=== PATIENT | male | born 1980 | race Caucasian/White ===

== ENCOUNTER 2020-02-06 16:42 | Outpatient (REF) | payer OTHER, SELFPAY | END 2020-02-06 16:43 | disposition home or self-care (01) | LOC: HO.LAB 16:42 | PROVIDERS: Visit Provider Internal Medicine | DX: Z20.828 Contact with and (suspected) exposure to other viral communicable diseases (principal) | CPT/HCPCS: C9803; U0003 ==

== ENCOUNTER 2020-02-16 15:42 | Outpatient (REF) | payer OTHER, SELFPAY | END 2020-02-16 15:43 | disposition home or self-care (01) | LOC: HO.LAB 15:42 | PROVIDERS: Visit Provider Internal Medicine | DX: Z20.828 Contact with and (suspected) exposure to other viral communicable diseases (principal) | CPT/HCPCS: C9803; U0003 ==

== ENCOUNTER 2020-03-06 16:43 | Outpatient (REF) | payer MEDICAID, SELFPAY | END 2020-03-06 16:44 | disposition home or self-care (01) | LOC: HO.LAB 16:43 | PROVIDERS: Visit Provider Internal Medicine | DX: Z20.828 Contact with and (suspected) exposure to other viral communicable diseases (principal) | CPT/HCPCS: C9803; U0003 ==

== ENCOUNTER 2020-03-20 14:52 | Outpatient (REF) | payer MEDICAID, SELFPAY | END 2020-03-20 14:53 | disposition home or self-care (01) | LOC: HO.LAB 14:52 | PROVIDERS: Visit Provider Internal Medicine | DX: Z20.828 Contact with and (suspected) exposure to other viral communicable diseases (principal) | CPT/HCPCS: C9803; U0003 ==

== ENCOUNTER 2020-04-01 14:15 | Outpatient (REF) | payer MEDICAID, SELFPAY | END 2020-04-01 14:16 | disposition home or self-care (01) | LOC: HO.LAB 14:15 | PROVIDERS: Visit Provider Internal Medicine | DX: Z20.822 Contact with and (suspected) exposure to COVID-19 (principal) | CPT/HCPCS: 36415; C9803; U0003 ==

== ENCOUNTER 2020-04-26 08:49 | Outpatient (REF) | payer OTHER, SELFPAY ==
[2020-04-26 09:35] LABS: Hematocrit 44.6 % (42-52); Hemoglobin 14.4 g/dl (14.0-18.0); Mean Corpuscular HGB Conc 32.3 g/dl (31.0-36.0); Mean Corpuscular Volume 89.7 fL (80-98); Mean Platelet Volume 9.1 fL (9.4-12.4); Platelet Count 272 X10*3/uL (160-400); Red Blood Count 4.97 X10*6/uL (4.60-5.80); Red Cell Distribution Width 13.8 % (11.0-16.0); White Blood Count 4.6 X10*3/uL (4.8-10.8)
[2020-04-26 10:00] LABS: Alanine Aminotransferase 20 U/L (0-40); Alkaline Phosphatase 58 U/L (39-117); Anion Gap 11 (12-20); Aspartate Amino Transferase 18 U/L (5-37); Bilirubin Direct < 0.2 mg/dL (0.0-0.5); Bilirubin Total 0.3 mg/dL (0.0-1.0); Blood Urea Nitrogen 13 mg/dL (9-16); Calcium 8.2 mg/dL (8.4-10.2); Carbon Dioxide 31 mmol/L (22-29); Chloride 104 mmol/L (96-108); Cholesterol 230 mg/dL; Estimated Glomerular Filt Rate > 60; Glucose Fasting 97 mg/dL (60-99); HDL Cholesterol 49 mg/dL; LDL Cholesterol Calculated 139 mg/dl; Potassium 4.5 mmol/L (3.3-5.1); Sodium 141 mmol/L (135-145); Total Protein 6.5 g/dL (6.5-8.0); Triglycerides 211 mg/dL
[2020-04-26 10:22] LABS: TSH reflex Free T4 2.62 uIU/mL (0.32-4.0)
== END 2020-04-26 08:50 | disposition home or self-care (01) ==
LOC: HO.LAB 08:49
PROVIDERS: PCP Hospitalist; Visit Provider Hospitalist
DX: Z00.00 Encounter for general adult medical examination without abnormal findings (principal); Z13.220 Encounter for screening for lipoid disorders; Z13.29 Encounter for screening for other suspected endocrine disorder
CPT/HCPCS: 36415; 80048; 80061; 80076; 84443; 85027

== ENCOUNTER 2020-05-14 07:13 | Outpatient (REF) | payer OTHER, SELFPAY ==
--- NOTE | ~2020-05-14 | XR_ITS ---
EXAMINATION: XR LUMBOSACRAL SPINE CLINICAL INFORMATION: Age-related osteoporosis. COMPARISON: None TECHNIQUE: Three views of the lumbosacral spine. FINDINGS: Normal alignment without subluxation. There is mild anterior wedging of L1 and T12 vertebral bodies, of indeterminate age. Inferior endplate findings in the L1 and T12 vertebral bodies suggests Schmorl's nodes. Remainder of the vertebral body heights are maintained. No acute fractures are seen. Disc spaces are maintained. Schmorl's node at T11 vertebral body as well. SI joints are intact. No suspicious soft tissue calcification. There is endplate spurring at L4, L5. XR/XR lumbar spine 2-3V IMPRESSION: 1. Mild anterior wedging of the T12 and L1 vertebral bodies, of indeterminate age. Please clinically correlate. Further evaluation with cross-sectional imaging/MRI as clinically warranted. 2. Mild spondylosis in the lumbar spine as detailed above.
[2020-05-14 07:36] LABS: MANUAL DIFF FLAG NO
[2020-05-14 07:42] LABS: Basophils Absolute Auto 0.1 X10*3/uL (0.0-0.2); Eosinophils Absolute Auto 0.4 X10*3/uL (0.0-0.4); Eosinophils Percent Auto 6.2 % (0-4); Hemoglobin 15.5 g/dl (14.0-18.0); Imm Gran Abs Auto 0.02 X10*3/uL (0.00-0.03); Imm Gran Pct Auto 0.3 % (0.0-0.4); Lymphocytes Absolute Auto 2.1 X10*3/uL (1.2-4.9); Lymphocytes Percent Auto 36.9 % (20-40); Mean Corpuscular Hemoglobin 29.3 pg (27.0-33.0); Mean Corpuscular Volume 88.8 fL (80-98); Mean Platelet Volume 8.8 fL (9.4-12.4); Monocytes Absolute Auto 0.6 X10*3/uL (0.1-1.2); Monocytes Percent Auto 9.9 % (2-11); Neutrophils Absolute Auto 2.6 X10*3/uL (2.0-8.3); Neutrophils Percent Auto 45.7 % (45-73); Platelet Count 308 X10*3/uL (160-400); Red Blood Count 5.29 X10*6/uL (4.60-5.80); Red Cell Distribution Width 13.7 % (11.0-16.0); White Blood Count 5.8 X10*3/uL (4.8-10.8)
[2020-05-14 09:22] LABS: Alanine Aminotransferase 25 U/L (0-40); Albumin Level 4.2 g/dL (3.5-5.0); Alkaline Phosphatase 59 U/L (39-117); Anion Gap 15 (12-20); Aspartate Amino Transferase 20 U/L (5-37); Bilirubin Total 0.3 mg/dL (0.0-1.0); Blood Urea Nitrogen 6 mg/dL (9-16); Calcium 8.7 mg/dL (8.4-10.2); Carbon Dioxide 26 mmol/L (22-29); Chloride 105 mmol/L (96-108); Cholesterol 242 mg/dL; Estimated Glomerular Filt Rate > 60; Glucose Fasting 99 mg/dL (60-99); HDL Cholesterol 54 mg/dL; LDL Cholesterol Calculated 135 mg/dl; Potassium 4.7 mmol/L (3.3-5.1); Sodium 141 mmol/L (135-145); Triglycerides 266 mg/dL
[2020-05-14 09:45] LABS: TSH reflex Free T4 5.21 uIU/mL (0.32-4.0)
[2020-05-14 10:21] LABS: Free T4 (Free Thyroxine) 0.81 ng/dL (0.71-1.85)
== END 2020-05-14 07:14 | disposition home or self-care (01) ==
LOC: HO.LAB 07:13
PROVIDERS: PCP Family Medicine; Visit Provider Family Medicine
DX: Z00.00 Encounter for general adult medical examination without abnormal findings (principal); M81.0 Age-related osteoporosis without current pathological fracture
CPT/HCPCS: 36415; 72100; 80053; 80061; 84439; 84443; 85025

== ENCOUNTER 2020-05-17 12:29 | Outpatient (REF) | payer OTHER, SELFPAY ==
[2020-05-17 15:25] LABS: Free T4 (Free Thyroxine) 0.83 ng/dL (0.71-1.85); Thyroid Stimulating Hormone 3.14 uIU/mL (0.32-4.0)
[2020-05-18 21:11] LABS: Triiodothyronine T3 Total 136 ng/dL (76-181)
== END 2020-05-17 12:30 | disposition home or self-care (01) ==
LOC: HO.WFDLDS 12:29
PROVIDERS: Visit Provider Family Medicine
DX: R79.89 Other specified abnormal findings of blood chemistry (principal)
CPT/HCPCS: 36415; 84439; 84443; 84480

== ENCOUNTER 2020-05-21 12:43 | Outpatient (REF) | payer OTHER, SELFPAY ==
--- NOTE | ~2020-05-21 | XR_ITS ---
EXAMINATION: XR HIP, LEFT CLINICAL INFORMATION: Pain left hip COMPARISON: None TECHNIQUE: AP and frog-lateral views of the left hip. FINDINGS: There is no fracture, dislocation, or destructive process. Bony mineralization appears normal. There is borderline narrowing superior medial hip joint without erosive change or visible chondrocalcinosis. The AP view shows borderline convexity at the lateral femoral head neck junction which may be associated with femoral acetabular impingement. There is a benign oval ossicle at the superior lateral acetabular rim. Pubis in soft tissue planes are normal. XR/XR hip LT min 2V IMPRESSION: Borderline narrowing superior medial hip joint.
--- NOTE | ~2020-05-21 | MM_ITS ---
EXAMINATION: BONE DENSITOMETRY CLINICAL INDICATION: Osteoporosis. Male, age 39. COMPARISON: None (current study represents initial baseline exam). TECHNIQUE: Using a [employer] DXA System (software version: 13.1) manufactured by [employer], dual-energy x-ray absorptiometry was performed of the lumbar spine and left hip. The images are of good technical quality. Based on ISCD (International Society for Clinical Densitometry) standards of reporting, Z-scores instead of T-scores are reported in this male patient younger than age 50. Summary results are attached. FINDINGS: AP SPINE L1-L4: BMD 0.970 g/cm2, T-score -2.1, Z-score -2.1, Z-score below expected range for age. LEFT FEMUR, NECK: BMD 0.857 g/cm2, T-score -1.6, Z-score -1.3, Z-score within expected range for age. LEFT FEMUR, TOTAL: BMD 0.927 g/cm2, T-score -1.2, Z-score -1.0, Z-score within expected range for age. IDENTIFIED RISK FACTORS: Osteoporosis, anticonvulsant. HISTORY OF FRACTURE: None listed. MEDICATIONS: None listed. MM/XR DEXA axial skeleton IMPRESSION: 1. DIAGNOSIS: Based on the lowest Z-score value of -2.1 in the lumbar spine, the patient's bone density is below the expected range for age. 2. 10-YEAR FRACTURE RISK PREDICTION, FRAX: Major osteoporotic fracture risk 1.2% and hip fracture risk 0.2%. 3. Treatment Recommendations: NOF guidelines recommend consideration for treatment in postmenopausal women and men age 50 and older presenting with the following: -A hip or vertebral (clinical or morphometric) fracture. -T-score less than or equal to -2.5 at the femoral neck or spine after appropriate evaluation to exclude secondary causes. -Low bone mass at the hip or spine and a 10-year fracture probability by FRAX of greater than or equal to 3% for hip fracture or greater than or equal to 20% for major osteoporotic fracture based on the [place] adapted WHO algorithm. 4. Other Recommendations: All treatment decisions require clinical judgment and consideration of individual patient factors, including patient preferences, comorbidities, previous drug use, risk factors not captured in the FRAX model (e.g. frailty, falls, vitamin D deficiency, increased bone turnover, interval significant decline in bone density) and possible under or overestimation of fracture risk by FRAX. Additional medical evaluation for secondary cause of low bone mineral density may be appropriate. FUTURE SCAN RECOMMENDATION: People with diagnosed cases of osteoporosis or at high risk for fracture should have regular bone mineral density tests. For patients eligible for Medicare, routine testing is allowed once every 2 years. The testing frequency can be increased to one year for patients who have rapidly progressing disease, those who are receiving or discontinuing medical therapy to restore bone mass, or have additional risk factors.
== END 2020-05-21 12:44 | disposition home or self-care (01) ==
LOC: HO.MAMMO 12:43
PROVIDERS: PCP Family Medicine; Visit Provider Family Medicine
DX: Z13.820 Encounter for screening for osteoporosis (principal); M25.552 Pain in left hip; M54.5 Low back pain; K62.5 Hemorrhage of anus and rectum; K59.00 Constipation, unspecified
CPT/HCPCS: 73502; 77080

== ENCOUNTER 2020-05-24 06:15 | Day surgery (SDC) | payer OTHER, SELFPAY ==
[2020-05-24 06:30] VITALS: BP 124/88; PULSE 85; RESP 16; TEMP 37.2; O2SAT 97; BMI 30.4
--- NOTE | 2020-05-24 07:15 | HO.ANESPROP2 ---
[facility] Active Problems Active Problems: All Active Problems (Updated 05/24/20 @ 06:46 by Sunita Smith RN) Rectal bleeding (Acute) Low back pain (Acute) Chronic pain (Acute) Sleep apnea (Acute) Anxiety and depression (Acute) Osteoporosis (Acute) Left hip pain (Acute) Elevated TSH (Acute) Cerumen impaction (Acute) Insomnia (Acute) Anxiety (Acute) Fibromyalgia (Acute) Gastritis (Acute) Colon cancer screening (Acute) Bleeding hemorrhoid (Acute) Constipation (Acute) Past Medical History Medical History Adult general medical exam Anxiety Asthma GERD (gastroesophageal reflux disease) History of fractured vertebra Laboratory examination ordered as part of a routine general medical examination Well adult exam Family History Family History Family/Other No problems noted. Surgical History Surgical History No history of previous surgery Social History Social History Alcohol intake: current Alcohol intake frequency: holidays/special occasions only Smoking Status: Never smoker Use of substances other than those prescribed or required for medical reasons: No Advance Directives: No Advance Directives Information Provided: Yes Meds Allergies Allergy/AdvReac Type Severity Reaction Status Date / Time moxifloxacin [From Avelox] Allergy Intermediate Rash< Verified 05/24/20 06:24 Hives. Home Medications Medication Instructions Recorded Confirmed Last Taken Type albuterol 90 mcg/actuation aerosol mcg INHALATION 04/23/20 Unknown History inhaler clonazepam 2 mg tablet 2 mg PO BID 04/23/20 Unknown History Exam Exam Date and Time: May 24, 2020 0715 Height,Weight and Vital Signs: Height 5 ft 3 in Weight 78.018 kg Last Vital Signs Temp 99.0 F 05/24/20 06:30 Pulse 85 05/24/20 06:30 Resp 16 05/24/20 06:30 BP 124/88 05/24/20 06:30 Pulse Ox 97 05/24/20 06:30 Airway Mallampati Class: I TM Dist: >3cm Loose/Missing/Broken Teeth: No Heart: RRR Lungs: CTA Assessment and Plan Assessment Anesthesia Assessment: Anesthesia Plan Discussed and Chart Reviewed Final Anesthetic Review NPO: Yes ASA Class: II Final Preanesthetic Review: Meds/Allgs Chart Reviewed, Consent Obtained/Reviewed and Anes Risks/Benef Reviewed Patient Risk: Low Procedure Risk: Low Anesthetic Plan Anesthetic Plan: MAC: Disposition: Standard PACU
--- NOTE | 2020-05-24 07:20 | W.PM.OPN ---
Operative Note Operative Note Date of Service: 05/24/20 Narrative: Pre-op diagnosis: Colon cancer screening, Rectal bleeding Post-op diagnosis: other (Diverticulosis, hemorrhoids) Procedure: COLONOSCOPY TILL CECUM Consent: Indications for the procedure and potential complications of bleeding, perforation, reaction to medications and missed diagnosis were discussed with the patient and informed consent was obtained. Instrument: Olympus PCF H 190 L variable stiffness pediatric colonoscope Monitoring: Vital signs and clinical assessment, intermittent blood pressure monitoring, continuous EKG monitoring, Pulse oximetry and Carbon Dioxide monitoring were done throughout the procedure. Colon withdrawl time was 16 minutes. Procedure: The patient was placed in the left lateral decubitis position and pre-procedure medications were administered. After a digital rectal examination of the ano-rectum, the video colonoscope was inserted into the rectum and advanced through the colon to the cecum. The colonoscope was slowly withdrawn in a retrograde panoramic fashion and the colon mucosa was carefully examined including a retroflexed view of the rectum. Findings and interventions are described below. Procedure Difficulty: Without difficulty Findings: Terminal Ileum: Not evaluated Cecum: Normal Ascending Colon: Normal Transverse Colon: Normal Descending Colon: Normal Sigmoid Colon: Moderate diverticulosis Rectum: Normal Ano-rectum: Moderate internal hemorrhoids Colon preparation: Good after some irrigation Impression and Post Procedure Diagnosis: Colonoscopy Findings: No polyps were detected Moderate diverticulosis seen in the sigmoid colon Moderate hemorrhoids on retroflexed exam - likely source for rectal bleeding. Plan: Patient advised to schedule a FU appointment in the GI Clinic with Arielle Damian NP if he continues to have rectal bleeding. Repeat Colonoscopy in 10 years. Above findings were reviewed with the patient and Hemorrhoids and diverticulosis handouts were given in the discharge area Surgeon: Eleanor Zheng MD Anesthesia: MAC (Harriot Cuff, POWERTRAIN DESIGN ENGINEER) Estimated blood loss (mL): 0 Pathology: none sent Condition: stable Disposition: PACU
--- NOTE | 2020-05-24 07:20 | MHC.SHP ---
Pre-Procedural Eval Section A The patient is an INPATIENT: No The History & Physical has been completed within 30 days and I have reviewed it.: Yes Section B Chief Complaint: hemorrhage of anus Details of Present Illness: He tells me that he sees RB on the TT and in the water and happens just about every time he moves his bowels. This has been a problem for 5-6 months. He denies any rectal pain or itching. He denies any preceding illness, medication change, diet change preceding this. His stools are generally hard and he moves them every other day. He does not feel he is constipated; subjectively. He has gained weight, no wt loss. His mother had bowel problems, she had surgery on her intestines, which sounds like she had an obstruction. He is not well acquainted with reason. There is no FHX of crc or polyps. He has never had a colonoscopy. Relevant Family History (Specify if Yes): No Relevant Social History: None Present Medications: see Short Stay Collaborative assessment Medical History: Significant History (sleep apnea, anxiety and depression) History of Previous Operations: No relevant previous surgery Allergies: Allergies Allergy/AdvReac Type Severity Reaction Status Date / Time moxifloxacin [From Avelox] Allergy Intermediate Rash< Verified 05/24/20 06:24 Hives. Review of Systems Sugical H&P ROS: Negative: Constitution, Cardiovascular and Respiratory and Yes, Specify: Gastrointestinal (rectal bleeding) Exam Surgical H&P Exam: Normal: Heart, Normal: Lungs, Normal: Extremities and Normal: Abdomen Plan Diagnosis/Plan: Unchanged I have reviewed the history and physical and performed a pertinent physical examination on my patient. No changes have occurred unless specified.
[2020-05-24] MEDS: Lactated Ringers 1,000 ML 50 ML IV (07:25)
[2020-05-24 08:10] VITALS: BP 114/61; PULSE 78; RESP 20; TEMP 36.5; O2SAT 97
[2020-05-24 08:28] VITALS: BP 124/68; PULSE 65; RESP 17; TEMP 36.4; O2SAT 96
== END 2020-05-24 08:58 | disposition home or self-care (01) ==
PROVIDERS: PCP Family Medicine; Visit Provider Internal Medicine Gastroenterology
PROC: 0DJD8ZZ Inspection of Lower Intestinal Tract, Via Natural or Artificial Opening Endoscopic (ICD-10-PCS; CPT 45378; principal; 2020-05-24 07:30)
DX: K62.5 Hemorrhage of anus and rectum (principal); K57.30 Diverticulosis of large intestine without perforation or abscess without bleeding; K64.8 Other hemorrhoids; K21.9 Gastro-esophageal reflux disease without esophagitis; J45.909 Unspecified asthma, uncomplicated; Z79.899 Other long term (current) drug therapy; Z88.1 Allergy status to other antibiotic agents
CPT/HCPCS: 45378; J3010

== ENCOUNTER → 2020-06-03 09:25 | Outpatient (BNVA) | payer OTHER, SELFPAY | PROVIDERS: PCP Family Medicine; Visit Provider Nurse Practitioner | DX: Z12.11 Encounter for screening for malignant neoplasm of colon (principal); K59.00 Constipation, unspecified; K64.9 Unspecified hemorrhoids | CPT/HCPCS: 99212; Q3014 ==

== ENCOUNTER 2020-06-07 10:00 | Outpatient (RCR) | payer OTHER, SELFPAY ==
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
--- NOTE | 2020-06-07 12:56 | MHC.PT.OD ---
[facility] [place] Office [place] Office [place] Office [address] Cielo Wheeler [address] [phone] F: [phone] F: [phone] F: [phone] F: [phone] Physical Therapy Daily Note Diagnosis: LBP, L HIP PAIN Date of Surgery: NA Date of Evaluation: 05/29/20 Date of Treatment: 06/07/20 Treatments to Date: 4 Cancellations to Date: No Shows to Date: Authorized Visits: 12 Insurance End Date: Precautions/ Contraindications:Osteoporosis, anxiety/depression Subjective: Use of Droid system master Dyeing Machine Tender service line #[id number] Gaby. Pt's GF is present for session alongside patient. Pt presents to office with std cane, in R UE. Pt reports no change with implement of new medication which were prescribed from PCP. He is inquiring about status of referral which Dr. Alaniz was making to orthopedic and pain management. He verbalizes he is unable to sleep at night which is impacting his level of depression overall. Pain Score and Location: 10 LB AND L HIP Objective Flowsheet: Tests & Measures AROM L knee flexion 30 degrees with report of severe pain in lumbar spine, limited by pain. Unable to assess SLR ability as pt noted to tremble off table during formal assessment AROM R knee flexion limited to 60 degrees Poor tolerance for PROM of L hip to assess ROM Trial of long axis distraction of the L LE with no change and poor tolerance/increased pain noted. Pt presents with R lateral trunk lean Poor tolerance for trial of various positional changes including prone lying KISHAN, sidebending and extension based treatment in standing and prone. Exercises Conversation completed with patient and pt's girlfriend surrounding status of therapy, pain levels, activity tolerance and participation to date. Pt has attended 4 session of therapy thus far, reporting increased total body pains, demonstrating poor tolerance for active participation in various positions/exercises trialed. Therapist consulted with medical legal investigator re: referral which pt was asking about (pain management and orthopedics). Prior to lunch today neither are currently in the system. MA encouraged patient to check back soon as it may take time for referral to be received. Pt appeared very anxious and inquired about xray findings; educated that MD will review findings with him when appropriate but try to remain calm, educated no findings of fracture of dislocation to place pt mind at ease; attempt made to educate pt about femoroacetabular impingement syndrome and relationship to sx (see xray). Pt stated he was understanding why he was not sent to specialist pre therapy- therapist educated patient that it is common for patients to see therapy as a first line and then often are referred to specialists with/after/during therapy with goal of improvement; however due to current poor tolerance and no change in status; tolerance for activity therapist is placing him on hold from therapy at this time. Pt inquires about further imaging such as MRI and he is told that his MD would be the provider who would be making decisions about what he needs in his next level of care. Pt is requesting referrals ricky and appears increasingly anxious today. Pt encouraged to phone office next week to follow up regarding request for referrals. Review of previously issued HEP program/tasks trialed in the office- pt requesting to hold Pt exhibits R lateral trunk lean, decreased L swing of L hip, decreased knee flexion during swing, foot flat contact, and weight shift towards R LE due to report of pain during stance on L LE. Pt was trialed with std cane however this appeared to worsen his gait mechanics and appeared to promote further asymmetry and gait deviations. Pt stated in [place] he had used a cane. Pt encouraged to change position often, take small short walks, trial new medication which was prescribed by PCP. Modalities Assessment: Pt has attended 4 sessions of therapy demonstrating poor response to rehab trial. He reports increased pain with all tasks and stated his whole body hurts. Limited tolerance for various positions with increased pain verbalized. He reports no change with implement of newly prescribed medications from PCP Dr. Alaniz and is inquiring about status of referrals to pain management and orthopedics. Pt presents with std cane demonstrating antalgic gait step to pattern with decreased stance/ swing phase bilaterally ;foot flat contact and short step length. Therapist is recommending pt consult with pain management and orthopedics this time. Requesting pt be placed on hold as poor response is demonstrated. PT Plan: Hold from PT for now Await referrals to pain management and orthopedic group Short Term Goals: 1. INCREASED AWARENESS POSTURE AND LB CARE 2. Pt TO PERF 2-3 TASKS WITH PROPER BODY MECH 3. Pt ABLE TO PERF 20 R SLR B WITHOUT SIGNIF INCREASE IN PAIN 4. IMPROVED GT (LESS LIMP) Retirement Goals: 1. I HEP WITH DC EX PLAN 2. IMPROVED TRUNK ROM 25% T/O 3. DECREASED BACK PAIN AT LEAST 50% WITH ADLS Electronically signed by: RYAN BRUCE, PT, DPT
== END 2020-07-01 08:19 | disposition other institution (70) ==
LOC: HO.PTWFD 10:00
PROVIDERS: Visit Provider Family Medicine
DX: M54.5 Low back pain (principal); M25.552 Pain in left hip
CPT/HCPCS: 97110; 97140; 97161; 97535

== ENCOUNTER → 2020-07-24 10:37 | Outpatient (BNVA) | payer OTHER, SELFPAY | PROVIDERS: PCP Family Medicine; Visit Provider Student in an Organized Health Care Education/Training Program | DX: M25.50 Pain in unspecified joint (principal) | CPT/HCPCS: 99202 ==

== ENCOUNTER 2020-08-09 13:25 | Outpatient (REF) | payer OTHER, SELFPAY | END 2020-08-09 13:26 | disposition home or self-care (01) | LOC: HO.LAB 13:25 | PROVIDERS: Visit Provider Internal Medicine | DX: Z20.822 Contact with and (suspected) exposure to COVID-19 (principal) | CPT/HCPCS: C9803; U0003; U0005 ==

== ENCOUNTER 2020-10-28 08:55 | Outpatient (REF) | payer OTHER, SELFPAY | END 2020-10-28 08:56 | disposition home or self-care (01) | LOC: HO.LAB 08:55 | PROVIDERS: PCP Family Medicine; Visit Provider Internal Medicine | DX: Z20.822 Contact with and (suspected) exposure to COVID-19 (principal) | CPT/HCPCS: C9803; U0003; U0005 ==

== ENCOUNTER 2020-11-01 09:20 | Outpatient (REF) | payer OTHER, SELFPAY ==
[2020-11-01 10:28] LABS: MANUAL DIFF FLAG NO
[2020-11-01 10:31] LABS: Basophils Percent Auto 0.6 % (0-2); Eosinophils Absolute Auto 0.3 X10*3/uL (0.0-0.4); Eosinophils Percent Auto 6.4 % (0-4); Hematocrit 45.4 % (42-52); Hemoglobin 14.9 g/dl (14.0-18.0); Imm Gran Abs Auto 0.02 X10*3/uL (0.00-0.03); Imm Gran Pct Auto 0.4 % (0.0-0.4); Lymphocytes Absolute Auto 1.4 X10*3/uL (1.2-4.9); Lymphocytes Percent Auto 27.8 % (20-40); Mean Corpuscular HGB Conc 32.8 g/dl (31.0-36.0); Mean Corpuscular Hemoglobin 29.3 pg (27.0-33.0); Mean Corpuscular Volume 89.2 fL (80-98); Mean Platelet Volume 9.3 fL (9.4-12.4); Monocytes Absolute Auto 0.6 X10*3/uL (0.1-1.2); Neutrophils Absolute Auto 2.8 X10*3/uL (2.0-8.3); Neutrophils Percent Auto 53.8 % (45-73); Platelet Count 281 X10*3/uL (160-400); Red Blood Count 5.09 X10*6/uL (4.60-5.80); Red Cell Distribution Width 14.4 % (11.0-16.0); White Blood Count 5.2 X10*3/uL (4.8-10.8)
[2020-11-01 11:14] LABS: Alanine Aminotransferase 25 U/L (0-40); Albumin Level 4.2 g/dL (3.5-5.0); Alkaline Phosphatase 56 U/L (39-117); Anion Gap 13 (12-20); Aspartate Amino Transferase 18 U/L (5-37); Bilirubin Total 0.4 mg/dL (0.0-1.0); Blood Urea Nitrogen 12 mg/dL (9-16); Calcium 8.7 mg/dL (8.4-10.2); Carbon Dioxide 26 mmol/L (22-29); Chloride 108 mmol/L (96-108); Erythrocyte Sedimentation Rate 2 MM/HR (0-15); Estimated Glomerular Filt Rate > 60; Glucose Random 98 mg/dL (60-115); Potassium 4.2 mmol/L (3.3-5.1); Sodium 143 mmol/L (135-145); Total Protein 6.5 g/dL (6.5-8.0)
[2020-11-01 11:23] LABS: Rheumatoid Factor < 15.0 IU/mL (<15.0)
[2020-11-02 20:38] LABS: Anti Nuclear Antibody Screen NEGATIVE (NEGATIVE)
[2020-11-02 21:16] LABS: Lyme Abs Screen <0.90 index
[2020-11-04 23:22] LABS: Cyclic Citrullinated Peptide <16 UNITS
[2020-11-06 16:01] LABS: Vitamin D 25-OH, D2 <4 ng/mL; Vitamin D 25-OH, D3 25 ng/mL; Vitamin D 25-OH, Total 25 ng/mL (30-100)
== END 2020-11-01 09:21 | disposition home or self-care (01) ==
LOC: HO.LAB 09:20
PROVIDERS: PCP Family Medicine; Visit Provider Student in an Organized Health Care Education/Training Program
DX: M25.50 Pain in unspecified joint (principal)
CPT/HCPCS: 36415; 80053; 82306; 85025; 85652; 86038; 86039; 86140; 86200; 86431; 86617; 86618

== ENCOUNTER → 2020-12-06 09:04 | Outpatient (BNVA) | payer OTHER, SELFPAY | PROVIDERS: Visit Provider Nurse Practitioner Family | DX: M79.7 Fibromyalgia (principal) | CPT/HCPCS: 99212 ==

== ENCOUNTER 2021-02-12 12:00 | Outpatient (REF) | payer OTHER, SELFPAY ==
[2021-02-12 14:29] LABS: Anion Gap 12 (12-20); Blood Urea Nitrogen 13 mg/dL (9-16); Calcium 8.8 mg/dL (8.4-10.2); Carbon Dioxide 28 mmol/L (22-29); Chloride 107 mmol/L (96-108); Estimated Glomerular Filt Rate > 60; Glucose Random 93 mg/dL (60-115); Potassium 4.9 mmol/L (3.3-5.1); Sodium 142 mmol/L (135-145)
== END 2021-02-12 12:01 | disposition home or self-care (01) ==
LOC: HO.WFDLDS 12:00
PROVIDERS: Visit Provider Hospitalist
DX: M54.50 Low back pain, unspecified (principal)
CPT/HCPCS: 36415; 80048